=== PATIENT | male | born 1995 | race Caucasian/White ===

== ENCOUNTER 2024-03-03 20:57 | Emergency (ER) | payer BC, SELFPAY ==
[2024-03-03 21:11] VITALS: BP 132/97; PULSE 80; TEMP 36.7; O2SAT 98
--- NOTE | 2024-03-03 21:34 | ED_ITS ---
HPI - Skin/Abscess/Foreign Bdy General Chief complaint: Skin/Abscess/Foreign Body Stated complaint: RASH ON HANDS Time Seen by Provider: 03/03/24 21:30 Source: patient Mode of arrival: walk-in Limitations: no limitations History of Present Illness HPI narrative: Patient is a 28-year-old male who presents to the emergency department for rash on the dorsums of the bilateral hands and between the fingers that has been present for almost 2 years. 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 He states it is itchy, stinging. No drainage or redness. No other rash that he has noted anywhere else. Related Data Previous Rx's ?Medication ?Instructions ?Recorded betamethasone, augmented 0.05 % 1 applic topical Q12H #15 grams 03/03/24 topical cream Allergies Allergy/AdvReac Type Severity Reaction Status Date / Time No Known Drug Allergies Allergy Verified 03/03/24 21:17 Review of Systems ROS Constitutional Denies: fever or chills Ears, nose, mouth, and throat Denies: throat pain or nasal congestion Respiratory Denies: shortness of breath Gastrointestinal Denies: nausea or vomiting Integumentary/Breast Reports: rash, itching and redness Hematologic/Lymphatic Denies: easy bruising or easy bleeding Exam Narrative Exam Narrative: Gen.: Awake, alert, in no distress Head: Normocephalic, atraumatic ENT: Moist mucous membranes Respiratory: No respiratory distress Extremities: Moves extremities equally Psych: Normal mood and affect Neuro: No focal neuro deficit Skin: Warm, dry, intact; Eczematous rash to the dorsums of the bilateral hands concentrated around the MCP joints and between the webspaces of the fingers. No extension to the palms of the hands. No vesicles or crusting. No circumferential swelling of the fingers. No petechia or purpura. Constitutional Vital Signs, click to edit/add: Last Vital Signs Temp 98.0 F 03/03/24 21:11 Pulse 80 03/03/24 21:11 Resp 16 03/03/24 21:11 BP 132/97 H 03/03/24 21:11 Pulse Ox 98 03/03/24 21:11 O2 Del Method Room Air 03/03/24 21:11 Course Vital Signs Vital signs: Vital Signs Temperature 98.0 F 03/03/24 21:11 Pulse Rate 80 03/03/24 21:11 Respiratory Rate 16 03/03/24 21:11 Blood Pressure 132/97 H 03/03/24 21:11 Pulse Oximetry 98 03/03/24 21:11 Oxygen Delivery Method Room Air 03/03/24 21:11 Temperature 98.0 F 03/03/24 21:11 Pulse Rate 80 03/03/24 21:11 Respiratory Rate 16 03/03/24 21:11 Blood Pressure 132/97 H 03/03/24 21:11 Pulse Oximetry 98 03/03/24 21:11 Oxygen Delivery Method Room Air 03/03/24 21:11 MDM - Skin/Abscess/Foreign Bdy MDM Narrative Medical decision making narrative: Patient treated with topical steroids, referred to dermatology. Return to the ER if symptoms change or worsen SUPERVISED APC VISIT, PHYSICIAN ATTESTATION: Based on the medical record the care appears appropriate. ? Medical Records Attestation: I reviewed the patient's medical records. Discharge Plan Discharge Stand Alone Forms: Portal Instructions Chief Complaint: Skin/Abscess/Foreign Body Clinical Impression: Eczema, Skin rash Patient Disposition: Home, Self-Care Time of Disposition Decision: 21:30 Condition: Good Prescriptions / Home Meds: New betamethasone, augmented 0.05 % cream 1 applic topical Q12H Qty: 15 0RF Print Language: [place] Instructions: Acute Rash (ED) Referrals: MANISHA WALDRON [Primary Care Provider] - 1 week MARITZA WALTON [Physician] - As needed ([phone] -- [facility]) Discharge Date/Time: 03/03/24 22:31
== END 2024-03-03 22:31 | disposition home or self-care (01) ==
PROVIDERS: Emergency Provider Internal Medicine; PCP Family Medicine
DX: L30.9 Dermatitis, unspecified (principal); R21 Rash and other nonspecific skin eruption
CPT/HCPCS: 99283

== ENCOUNTER 2025-02-22 13:25 | Emergency (ER) | payer BC, SELFPAY ==
[2025-02-22 13:30] VITALS: BP 135/89; PULSE 86; TEMP 36.6; O2SAT 98; BMI 27.9
--- OUTSIDE RECORDS SUMMARY | 2025-02-22 13:33 | XMS_ITS | Patient Health Record ---
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 Role Phone Matilde Long Primary Care Provider Allergies No Known Allergies Reason For Referral No Information Medications Medication SIG (Take, Route, Frequency, Duration) Notes Start Date End Date Status Abilify 5 MG 1 tablet Orally Once a day for 30 day(s) 06/05/2023 Active Zoloft 50 MG 1 tablet Orally Once a day for 30 days take 1/2 tablet po for first week than increase dose to 1 tablet daily 05/07/2023 Active Vistaril 25 MG 1 capsule Orally BID as needed for 30 days 05/07/2023 Active Social History Tobacco Use: Social History Observation Description Date Details (start date - stop date) Former Smoker 08/24/2003 - 08/24/2021 Tobacco Use/Smoking Question Answer Notes Patient is a former smoker When did you start smoking? 08/24/2003 When did you stop smoking? 08/24/2021 How long has it been since you last smoked? 1-5 years Alcohol Screen (Audit-C) Question Answer Notes Did you have a drink containing alcohol in the p ast year? Yes How often did you have a dri nk containing alcohol in the past year? Monthly (2 points) Points 2 Interpretation Negative Tobacco use other than smoking: Question Answer Notes Are you an other tobacco user? Yes V ape Daily Section Notes: Patient states was drinking multiple times weekly, but the past month hasnt been Patient states was drinking multiple times weekly, but the past month hasnt been Problems Problem Type SNOMED Code ICD Code Onset Dates Problem Status W/U Status Risk Notes Problem [id number] Generalized anxiety disorder (F41.1) Active confirmed Plan Of Treatment No Information Insurance Providers Payer Name Payer Address Payer Phone Subscriber Number Group Number Insured Name Patient Relationship to Insured Coverage Start Date Coverage End Date [employer] PPO PLUS LOCAL PLAN [address] [place] [phone] [id number] Ronni De Santiago Self - patient is the insured 3 Medical (General) History Medical History History ICD Code Anxiety F41.9 Surgical History Surgery Date(Month/Year) Nose Cauterization 2003
--- NOTE | 2025-02-22 13:48 | ED.GENADUL1 ---
HPI HPI - General Adult General Chief complaint: Wound/Laceration Stated complaint: LACERATION L HAND Time Seen by Provider: 02/22/25 13:27 Source: patient Mode of arrival: walk-in Limitations: no limitations History of Present Illness HPI narrative: Patient is a 29-year-old male who presents the department today for evaluation concerns for a laceration to the third digit of his left hand. He endorses while at work he was tightening a bolt and subsequently cut his hand and what he believes to be equipment he was using. He reports there was no broken equipment. He mentions he has a laceration to the dorsal aspect of the third digit on the left hand at the proximal joint. No paresthesias, weakness or loss of movement to the affected extremity. He does not know the date of his last tetanus. He otherwise endorses he is healthy and denies any significant medical or surgical history. Related Data Home Medications ?Medication ?Instructions ?Recorded ?Confirmed No Known Home Medications 02/22/25 02/22/25 Allergies Allergy/AdvReac Type Severity Reaction Status Date / Time No Known Drug Allergies Allergy Verified 02/22/25 13:30 Review of Systems ROS Status of ROS 10 or more systems reviewed and unremarkable except as noted in history and below PFSH PFS Social History Little interest or pleasure in doing things: not at all Feeling down, depressed, or hopeless: not at all Exam Narrative Exam Narrative: Constituational: Awake/ alert, no apparent distress, well hydrated HENMT: normocephalic, external ears normal, moist oral mucous membranes and oropharynx normal Eyes: EOMI and conjunctivae normal Neck: ROM intact Chest: inspection of chest normal Respiratory: Normal respiratory effort MSK: Gross/fine motor movement intact to all digits of L hand, +NVI Skin: +approx 1cm diagonal laceration across PIP of the third digit of L hand to the dorsal aspect. Skin is otherwise warm/dry/intact Neuro: no focal deficits Psych: mental status grossly normal Constitutional Vital Signs, click to edit/add: Last Vital Signs Temp 97.9 F 02/22/25 13:30 Pulse 86 02/22/25 13:30 Resp 18 02/22/25 13:30 BP 135/89 02/22/25 13:30 Pulse Ox 98 02/22/25 13:30 O2 Del Method Room Air 02/22/25 13:30 Course Vital Signs Vital signs: Vital Signs Temperature 97.9 F 02/22/25 13:30 Pulse Rate 86 02/22/25 13:30 Respiratory Rate 18 02/22/25 13:30 Blood Pressure 135/89 02/22/25 13:30 Pulse Oximetry 98 02/22/25 13:30 Oxygen Delivery Method Room Air 02/22/25 13:30 Temperature 97.9 F 02/22/25 13:30 Pulse Rate 86 02/22/25 13:30 Respiratory Rate 18 02/22/25 13:30 Blood Pressure 135/89 02/22/25 13:30 Pulse Oximetry 98 02/22/25 13:30 Oxygen Delivery Method Room Air 02/22/25 13:30 Medical Decision Making MDM Narrative Medical decision making narrative: Patient is a well-appearing 29-year-old male who presented to the emergency department today for evaluation concerns for a laceration to the third digit of his left hand while tightening a bolt at work. Examination without any concerning neurovascular or motor findings on exam. Wound care provided and wound was irrigated profusely. No foreign bodies present. Subsequent wound closure and hemostasis achieved with placement of sutures. Please see procedure note for details. This additionally updated in the ER today. Discussed these findings with the patient including recommendations for supportive care for her laceration and sutures. Discussed additional recommendations for suture removal. Advised on follow-up with patient's primary care provider for reevaluation. Discussed signs and symptoms of any worsening condition including infection and when to consider reevaluation by the emergency department. Patient verbalized an understanding of this and is agreeable to plan to be discharged home. Medical Records Medical records reviewed: Yes I reviewed the patient's medical records Discharge Plan Discharge Chief Complaint: Wound/Laceration Clinical Impression: Laceration Patient Disposition: Home, Self-Care Prescriptions / Home Meds: No Action No Known Home Medications Print Language: [place] Instructions: Finger Laceration (ED) Additional Instructions: Sutures clean and dry. May wash hands and pat dry. May apply Vaseline and bacitracin and cover with a dry dressing for the next 48 hours. Updated today in the emergency department. Signs and symptoms of infection as discussed. Recommend suture removal in approximately 1 week. Please up with your primary care provider for reevaluation as discussed. May return to the ER with any concerns at any time. Referrals: MANISHA WALDRON [Primary Care Provider, [facility]] - 1 week Procedures ED Laceration Laceration Laceration 1: Site: other (Digit PIP L hand) Side (if applicable): left Size (cm): 1 Description: linear Depth: simple, single layer Anesthetic used: lidocaine 1% Anesthesia technique: local infiltration Amount (ml): 3 Pre-repair: wound explored and irrigated extensively Skin layer closed with: other (prolene) Size (cm): 5-0 Number of sutures: 2 Technique: simple, interrupted Additional comments: Acceptable wound approximation with hemostasis achieved. Patient tolerated procedure well and remains neurovascularly intact.
[2025-02-22] MEDS: ADACEL DIPH,PERTUSS(ACELL),TET VAC/PF 0.5 ML ADULT SYRINGE IM (14:15)
[2025-02-22] MEDS: LIDOCAINE HCL 1% 100 MG/10 ML MDV 5 ML INJ (14:17)
== END 2025-02-22 14:23 | disposition home or self-care (01) ==
PROVIDERS: Emergency Provider Emergency Medicine; PCP Family Medicine
DX: S61.213A Laceration without foreign body of left middle finger without damage to nail, initial encounter (principal); W45.8XXA Other foreign body or object entering through skin, initial encounter; Z23 Encounter for immunization
CPT/HCPCS: 12001; 90471; 90715; 99284